=== PATIENT | male | born 1950 | race Caucasian/White ===

== ENCOUNTER 2018-09-17 09:01 | Day surgery (SDC) | payer BC ==
[2018-09-17 10:14] LABS: ADD MAN DIFF? NO
[2018-09-17 10:17] LABS: BASOPHIL # 0.1 10^3/ul (0.0-0.1); BASOPHILS % 0.7 % (0.0-2.0); EOSINOPHILS # 0.3 10^3/ul (0.0-0.5); EOSINOPHILS % 3.2 % (0.0-7.0); HEMATOCRIT 47.9 % (42.0-52.0); LYMPHOCYTES # 2.4 10^3/ul (0.8-2.9); LYMPHOCYTES % 23.8 % (15.0-51.0); MEAN CORPUSCULAR HEMOGLOBIN 29.8 pg (29.0-33.0); MEAN CORPUSCULAR HGB CONC 31.3 g/dl (32.0-37.0); MEAN PLATELET VOLUME 10.5 fl (7.4-10.4); MONOCYTE # 0.9 10^3/ul (0.3-0.9); MONOCYTES % 8.8 % (0.0-11.0); NEUTROPHIL # 6.4 10^3/ul (1.6-7.5); NEUTROPHILS % 62.6 % (39.0-77.0); PLATELET COUNT 246 10^3/UL (140-415); RED BLOOD COUNT 5.04 10^6/ul (4.70-6.10); RED CELL DISTRIBUTION WIDTH 12.9 % (11.5-14.5)
[2018-09-17 10:17] LABS: WHITE BLOOD COUNT 10.2 10^3/ul (4.8-10.8)
[2018-09-17 10:35] LABS: ANION GAP 11 (5-13); BLOOD UREA NITROGEN 20 mg/dl (7-20); CALCIUM 8.8 mg/dl (8.4-10.2); CARBON DIOXIDE 32 mmol/L (21-31); CHLORIDE 100 mmol/L (97-110); Estimated GFR > 60 mL/min (>60); GLUCOSE 82 mg/dl (70-220); POTASSIUM 4.3 mmol/L (3.5-5.1); SODIUM 143 mmol/L (135-144)
[2018-09-17 10:37] LABS: INR 0.88; PT RATIO 0.9
[2018-09-17 10:38] LABS: PARTIAL THROMBOPLASTIN TIME 29.7 Sec (23.0-35.0)
[2018-09-17] MEDS ORDERED: MIDAZOLAM 1 MG/ML 2 ML INJ (10:55)
[2018-09-17] MEDS ORDERED: IODIXANOL LOCM 100 ML BTL ×2 (10:55→12:49)
[2018-09-17] MEDS ORDERED: HEPARIN 1000 UNITS/ML 10 ML INJ (10:55)
[2018-09-17] MEDS ORDERED: VERAPAMIL 5 MG INJ (10:55)
[2018-09-17] MEDS ORDERED: FENTAnyl 50 MCG/ML VIAL (10:55)
[2018-09-17] MEDS ORDERED: LIDOCAINE 1% (MDV) 20 ML INJ (10:55)
[2018-09-17] MEDS ORDERED: NITROGLYCERIN (IC) 100 MCG/ML INJ (10:56)
[2018-09-17] MEDS ORDERED: ASPIRIN 325 MG TAB (11:56)
[2018-09-17] MEDS ORDERED: CLOPIDOGREL 300 MG TAB (11:56)
[2018-09-17] MEDS: SOD CHLORIDE 0.9% 1,000 ML IV ×2 (12:47→13:22)
[2018-09-17] MEDS ORDERED: ACETAMINOPHEN 325 MG TAB PO (13:00)
[2018-09-17] MEDS ORDERED: AL HYDROX/MG HYDROX/SIMETH 30 ML CUP PO (13:00)
[2018-09-17] MEDS ORDERED: ONDANSETRON 4 MG INJ IV (13:00)
[2018-09-17] MEDS ORDERED: OXYCODONE/ACETAMINOPHEN (5/325) TAB PO (13:00)
[2018-09-18] MEDS ORDERED: CLOPIDOGREL 75 MG TAB PO (09:00)
[2018-09-18] MEDS ORDERED: ASPIRIN (EC) 81 MG TAB PO (09:00)
== END 2018-09-17 20:45 | disposition home or self-care (01) ==
LOC: SDS 09:01 → ICU 13:15 → SDS 20:45
DX: I25.110 Atherosclerotic heart disease of native coronary artery with unstable angina pectoris (principal); I25.2 Old myocardial infarction
CPT/HCPCS: 80048; 85025; 85610; 85730; 87081; 93005; 93458

== ENCOUNTER 2018-10-29 13:39 | Observation (INO) | payer BC ==
[2018-10-29 15:43] LABS: ADD MAN DIFF? NO
[2018-10-29] MEDS ORDERED: LIDOCAINE 1% (MDV) 20 ML INJ (15:44)
[2018-10-29] MEDS ORDERED: FENTAnyl 50 MCG/ML VIAL (15:44)
[2018-10-29] MEDS ORDERED: MIDAZOLAM 1 MG/ML 2 ML INJ (15:44)
[2018-10-29] MEDS ORDERED: IODIXANOL LOCM 100 ML BTL (15:44)
[2018-10-29] MEDS ORDERED: HEPARIN 1000 UNITS/ML 10 ML INJ ×2 (15:44→15:51)
[2018-10-29] MEDS ORDERED: NITROGLYCERIN (IC) 100 MCG/ML INJ (15:46)
[2018-10-29] MEDS ORDERED: SOD CHLORIDE 0.9% 500 ML (15:46)
[2018-10-29 15:47] LABS: WHITE BLOOD COUNT 9.9 10^3/ul (4.8-10.8)
[2018-10-29 15:47] LABS: BASOPHIL # 0.1 10^3/ul (0.0-0.1); BASOPHILS % 0.9 % (0.0-2.0); EOSINOPHILS # 0.3 10^3/ul (0.0-0.5); EOSINOPHILS % 2.7 % (0.0-7.0); HEMATOCRIT 45.5 % (42.0-52.0); HEMOGLOBIN 14.6 g/dl (14.0-18.0); LYMPHOCYTES # 2.3 10^3/ul (0.8-2.9); MEAN CORPUSCULAR HGB CONC 32.1 g/dl (32.0-37.0); MEAN CORPUSCULAR VOLUME 93.6 fl (82.0-101.0); MONOCYTE # 0.9 10^3/ul (0.3-0.9); MONOCYTES % 9.2 % (0.0-11.0); NEUTROPHIL # 6.3 10^3/ul (1.6-7.5); NEUTROPHILS % 63.1 % (39.0-77.0); PLATELET COUNT 288 10^3/UL (140-415); RED BLOOD COUNT 4.86 10^6/ul (4.70-6.10); RED CELL DISTRIBUTION WIDTH 12.3 % (11.5-14.5)
[2018-10-29 16:18] LABS: INR 0.86; PROTIME 11.8 Sec (11.9-14.9); PT RATIO 0.9
[2018-10-29 16:19] LABS: ANION GAP 9 (5-13); BLOOD UREA NITROGEN 20 mg/dl (7-20); CARBON DIOXIDE 32 mmol/L (21-31); CHLORIDE 101 mmol/L (97-110); CREATININE 0.91 mg/dl (0.61-1.24); Estimated GFR > 60 mL/min (>60); GLUCOSE 78 mg/dl (70-220); PARTIAL THROMBOPLASTIN TIME 29.1 Sec (23.0-35.0); POTASSIUM 4.1 mmol/L (3.5-5.1); SODIUM 142 mmol/L (135-144)
[2018-10-29] MEDS ORDERED: IOHEXOL 350MG/ML 50 ML BTL (16:26)
[2018-10-29] MEDS ORDERED: ASPIRIN 81 MG TAB (16:40)
[2018-10-29] MEDS ORDERED: CLOPIDOGREL 75 MG TAB ×2 (16:40→16:48)
[2018-10-29] MEDS ORDERED: ASPIRIN 325 MG TAB (16:48)
[2018-10-29] MEDS ORDERED: AL HYDROX/MG HYDROX/SIMETH 30 ML CUP PO (17:00)
[2018-10-29] MEDS ORDERED: ONDANSETRON 4 MG INJ IV (17:00)
[2018-10-29] MEDS ORDERED: ACETAMINOPHEN 325 MG TAB PO (17:00)
[2018-10-29] MEDS: SOD CHLORIDE 0.9% 1,000 ML IV (19:00)
[2018-10-29] MEDS: TAMSULOSIN (SR) 0.4 MG CAP PO (21:23)
[2018-10-29] MEDS: ATORVASTATIN 40 MG TAB PO (21:23)
[2018-10-29] MEDS ORDERED: ALBUTEROL HFA 8 GM INHALER INH (22:30)
[2018-10-29] MEDS ORDERED: ATROPINE 1 MG/10 ML SYRINGE (22:48)
[2018-10-29] MEDS: ALBUTEROL 0.083% (NEB) 2.5 MG/3 ML AMP HHN (23:00)
[2018-10-30] MEDS: SOD CHLORIDE 0.9% 1,000 ML IV (02:32)
[2018-10-30 05:36] LABS: ADD MAN DIFF? NO
[2018-10-30 05:40] LABS: WHITE BLOOD COUNT 10.9 10^3/ul (4.8-10.8)
[2018-10-30 05:40] LABS: BASOPHIL # 0.1 10^3/ul (0.0-0.1); BASOPHILS % 0.7 % (0.0-2.0); EOSINOPHILS # 0.2 10^3/ul (0.0-0.5); EOSINOPHILS % 2.1 % (0.0-7.0); HEMATOCRIT 42.3 % (42.0-52.0); HEMOGLOBIN 13.8 g/dl (14.0-18.0); LYMPHOCYTES % 8.8 % (15.0-51.0); MEAN CORPUSCULAR HEMOGLOBIN 30.3 pg (29.0-33.0); MEAN CORPUSCULAR HGB CONC 32.6 g/dl (32.0-37.0); NEUTROPHIL # 8.6 10^3/ul (1.6-7.5); NEUTROPHILS % 78.9 % (39.0-77.0); PLATELET COUNT 229 10^3/UL (140-415); RED BLOOD COUNT 4.55 10^6/ul (4.70-6.10); RED CELL DISTRIBUTION WIDTH 12.6 % (11.5-14.5)
[2018-10-30] MEDS: PANTOPRAZOLE (EC) 40 MG TAB PO (05:54)
[2018-10-30 06:04] LABS: ANION GAP 8 (5-13); BLOOD UREA NITROGEN 19 mg/dl (7-20); CALCIUM 8.8 mg/dl (8.4-10.2); CARBON DIOXIDE 32 mmol/L (21-31); CHLORIDE 101 mmol/L (97-110); CREATININE 0.82 mg/dl (0.61-1.24); Estimated GFR > 60 mL/min (>60); GLUCOSE 115 mg/dl (70-220); POTASSIUM 4.3 mmol/L (3.5-5.1); SODIUM 141 mmol/L (135-144)
[2018-10-30] MEDS: CLOPIDOGREL 75 MG TAB PO (09:16)
[2018-10-30] MEDS: ASPIRIN (EC) 81 MG TAB PO (09:16)
[2018-10-30] MEDS: METOPROLOL (XL) 50 MG TAB PO (09:17)
[2018-10-30] MEDS: predniSONE 5 MG TAB PO (09:17)
[2018-10-30] MEDS: LOSARTAN 50 MG TAB PO (09:17)
== END 2018-10-30 16:45 | disposition home or self-care (01) ==
LOC: SDS 13:39 → REC 16:34 → ICU 17:38
DX: I25.10 Atherosclerotic heart disease of native coronary artery without angina pectoris (principal); I10 Essential (primary) hypertension; E78.5 Hyperlipidemia, unspecified; J44.9 Chronic obstructive pulmonary disease, unspecified; N40.0 Benign prostatic hyperplasia without lower urinary tract symptoms; Z87.891 Personal history of nicotine dependence
CPT/HCPCS: 80048; 85025; 85610; 85730; 87081; 92928; 93005; 93454; 94664

== ENCOUNTER 2019-01-21 07:36 | Day surgery (SDC) | payer BC ==
[~2019-01-21 07:36] MED LIST: SOD CHLORIDE 0.9% 1,000 ML IV
[2019-01-21 08:31] LABS: ADD MAN DIFF? NO
[2019-01-21 08:33] LABS: WHITE BLOOD COUNT 10.1 10^3/ul (4.8-10.8)
[2019-01-21 08:33] LABS: BASOPHIL # 0.1 10^3/ul (0.0-0.1); EOSINOPHILS # 0.4 10^3/ul (0.0-0.5); EOSINOPHILS % 3.7 % (0.0-7.0); HEMATOCRIT 48.7 % (42.0-52.0); HEMOGLOBIN 15.4 g/dl (14.0-18.0); LYMPHOCYTES # 2.4 10^3/ul (0.8-2.9); LYMPHOCYTES % 23.5 % (15.0-51.0); MEAN CORPUSCULAR HEMOGLOBIN 29.4 pg (29.0-33.0); MEAN CORPUSCULAR HGB CONC 31.6 g/dl (32.0-37.0); MEAN CORPUSCULAR VOLUME 93.1 fl (82.0-101.0); MEAN PLATELET VOLUME 10.2 fl (7.4-10.4); MONOCYTE # 0.9 10^3/ul (0.3-0.9); MONOCYTES % 8.4 % (0.0-11.0); NEUTROPHIL # 6.4 10^3/ul (1.6-7.5); NEUTROPHILS % 62.7 % (39.0-77.0); PLATELET COUNT 266 10^3/UL (140-415); RED BLOOD COUNT 5.23 10^6/ul (4.70-6.10); RED CELL DISTRIBUTION WIDTH 12.5 % (11.5-14.5)
[2019-01-21] MEDS ORDERED: FENTAnyl 50 MCG/ML VIAL (08:45)
[2019-01-21] MEDS ORDERED: LIDOCAINE 1% (MDV) 20 ML INJ (08:45)
[2019-01-21] MEDS ORDERED: IODIXANOL LOCM 100 ML BTL (08:45)
[2019-01-21] MEDS ORDERED: HEPARIN 1000 UNITS/ML 10 ML INJ (08:45)
[2019-01-21] MEDS ORDERED: MIDAZOLAM 1 MG/ML 2 ML INJ (08:45)
[2019-01-21 08:52] LABS: ALANINE AMINOTRANSFERASE 17 IU/L (13-69); ALBUMIN 4.3 g/dl (3.3-4.9); ALBUMIN/GLOBULIN RATIO 1.26; ALKALINE PHOSPHATASE 65 IU/L (42-121); ANION GAP 8 (5-13); ASPARTATE AMINO TRANSFERASE 27 IU/L (15-46); BILIRUBIN,INDIRECT 0.8 mg/dl (0-1.1); BILIRUBIN,TOTAL 0.8 mg/dl (0.2-1.3); BLOOD UREA NITROGEN 16 mg/dl (7-20); CALCIUM 9.3 mg/dl (8.4-10.2); CARBON DIOXIDE 33 mmol/L (21-31); CHLORIDE 100 mmol/L (97-110); CREATININE 0.99 mg/dl (0.61-1.24); Estimated GFR > 60 mL/min (>60); GLUCOSE 88 mg/dl (70-220); INR 0.88; POTASSIUM 4.3 mmol/L (3.5-5.1); PT RATIO 0.9; SODIUM 141 mmol/L (135-144); TOTAL PROTEIN 7.7 g/dl (6.1-8.1)
[2019-01-21 08:53] LABS: PARTIAL THROMBOPLASTIN TIME 28.4 Sec (23.0-35.0)
[2019-01-21] MEDS ORDERED: SOD CHLORIDE 0.9% 500 ML (08:57)
[2019-01-21] MEDS ORDERED: NITROGLYCERIN (IC) 100 MCG/ML INJ (09:25)
[2019-01-21] MEDS ORDERED: ONDANSETRON 4 MG INJ IV (10:00)
[2019-01-21] MEDS ORDERED: ACETAMINOPHEN 325 MG TAB PO (10:00)
[2019-01-21] MEDS ORDERED: AL HYDROX/MG HYDROX/SIMETH 30 ML CUP PO (10:00)
[2019-01-21] MEDS ORDERED: CLOPIDOGREL 300 MG TAB (10:05)
[2019-01-21] MEDS ORDERED: ASPIRIN 325 MG TAB ×2 (10:05→10:08)
[2019-01-21] MEDS: SOD CHLORIDE 0.9% 1,000 ML IV (10:24)
== END 2019-01-21 17:14 | disposition home or self-care (01) ==
LOC: SDS 07:36
DX: I25.10 Atherosclerotic heart disease of native coronary artery without angina pectoris (principal); Z87.891 Personal history of nicotine dependence; I10 Essential (primary) hypertension; I25.2 Old myocardial infarction
CPT/HCPCS: 80053; 85025; 85610; 85730; 92928; 93454